=== PATIENT | male | born 1955 | race African-American/Black ===

== ENCOUNTER → 2022-02-26 | Outpatient (CLI) | payer MEDICARE, SELFPAY ==
--- NOTE | 2022-02-26 11:53 | RAD_ITS ---
PROCEDURE: Fluoroscopic guided Hip Injection DATE: 02/26/2022. INDICATION: Male, 66 years old. Chronic right hip pain. PHYSICIAN: Justin Pablo M.D. MEDICATIONS: 80 mg of KENALOG and 3 cc of 1% LIDOCAINE. 2% lidocaine administered subcutaneously for local anesthesia. ACCESS SITE: Right hip. NEEDLE: 22-gauge spinal needle. FLUOROSCOPY TIME (if supplied): (0:36) minutes/seconds. One image was obtained. FINDINGS: The risks, benefits, and alternatives to the procedure were explained to the patient. The specific risks of bleeding, infection, and neurovascular injury were detailed and accepted. Witnessed informed consent was obtained. A 22-gauge spinal needle was positioned under radiographic fluoroscopic localization. Approximately 2 cc of ISOVUE-300 instilled for localization purposes. Medication was then injected. The patient tolerated the procedure well without any immediate complications. RAD/Inj/Asp Romero Jt Should/Hip/Knee IMPRESSION: 1. Successful fluoroscopic guided hip injection. Electronically Signed: Justin Pablo MD at 13:29 EST ,
[2022-02-26] MEDS: Lidocaine 2% (5ml sdv) 5 ML VIAL.MPF INFILT (12:35)
[2022-02-26] MEDS: Triamcinolone Acetonide 40 MG/ML Vial 80 MG OPERA.SITE (12:40)
[2022-02-26] MEDS: Lidocaine 1% (5 ml sdv) 5 ML Vial 3 ML OPERA.SITE (12:40)
== END | disposition home or self-care (01) ==
DX: M16.11 Unilateral primary osteoarthritis, right hip (principal)
CPT/HCPCS: 20610; 77002; Q9965